=== PATIENT | male | born 1995 | race Caucasian/White ===

== ENCOUNTER 2016-07-16 12:23 | Emergency (ER) | payer OTHER ==
[2016-07-16 12:33] VITALS: BP 131/68; PULSE 79; RESP 20; TEMP 98.5
[2016-07-16] MEDS ORDERED: TOPICAL SKIN ADHESIVE 1 EACH AMP TOPICAL ONE (13:04)
[2016-07-16] MEDS ORDERED: GELATIN SPONGE,ABSORB (SMALL) 1 EACH SPONGE TOPICAL STA (13:05)
[2016-07-16] MEDS ORDERED: DIPH,PERTUS(ACELL)TETVAC-LF 0.5 ML VIAL IM ONE (13:08)
--- NOTE | 2016-07-16 13:12 | ED ---
Wound/Laceration HPI - General Chief Complaint: Wound/Laceration Stated Complaint: Laceration on Finger Time Seen by Provider: 07/16/16 12:52 Source: patient, RN notes reviewed Mode of arrival: ambulatory Limitations: no limitations - History of Present Illness Initial Comments: Patient is a 21-year-old male presents emergency Department with chief complaint of a laceration over his left second index finger. Patient reports that he cut it while trying to covering the noodles. Patient states that he sliced his finger and is continued to bleed. Patient denies any other lacerations or injuries. Patient reports he is not up-to-date on his tetanus shot. Patient denies any decreased range of motion in the finger. Has full sensation. Patient denies any recent fever, chills, shortness of breath, chest pain, back pain, abdominal pain, nausea vomiting, numbness or tingling, dysuria or hematuria, constipation or diarrhea, headaches or visual changes, or any other current symptoms - Related Data Home Medications Medication Instructions Recorded Confirmed No Known Home Medications [No 07/16/16 07/16/16 Known Home Medications] Allergies Allergy/AdvReac Type Severity Reaction Status Date / Time No Known Allergies Allergy Verified 07/16/16 12:31 Review of Systems ROS Statement: Those systems with pertinent positive or pertinent negative responses have been documented in the HPI. ROS Other: All systems not noted in ROS Statement are negative. Past Medical History Past Medical History: No Reported History History of Any Multi-Drug Resistant Organisms: None Reported Past Surgical History: No Surgical Hx Reported Past Psychological History: No Psychological Hx Reported Smoking Status: Current every day smoker Past Alcohol Use History: Occasional Past Drug Use History: None Reported General Exam - General Exam Comments Initial Comments: This is a 21-year-old male. Patient does not appear to be in any acute distress. Limitations: no limitations General appearance: alert, in no apparent distress Head exam: Present: atraumatic, normocephalic, normal inspection Eye exam: Present: normal appearance, PERRL, EOMI. Absent: scleral icterus, conjunctival injection, periorbital swelling ENT exam: Present: normal exam, normal oropharynx, mucous membranes moist Neck exam: Present: normal inspection. Absent: tenderness, meningismus, lymphadenopathy Respiratory exam: Present: normal lung sounds bilaterally. Absent: respiratory distress, wheezes, rales, rhonchi, stridor Cardiovascular Exam: Present: regular rate, normal rhythm, normal heart sounds. Absent: systolic murmur, diastolic murmur, rubs, gallop, clicks GI/Abdominal exam: Present: soft, normal bowel sounds. Absent: distended, tenderness, guarding, rebound, rigid Extremities exam: Present: normal inspection, full ROM, normal capillary refill. Absent: tenderness, pedal edema, joint swelling, calf tenderness Right Elbow exam: Present: normal inspection, full ROM Forearm Wrist exam: Present: normal inspection, full ROM Hand Wrist exam: Present: normal inspection, full ROM, laceration (Patient is a 2 cm laceration over the second finger. Laceration is superficial. Skin flap.) Neuro motor exam: Present: wrist extension intact, thumb opposition intact, thumb IP flexion intact, thumb adduction intact, fingers 2-5 abduction intact Vascular: Present: normal capillary refill Back exam: Present: normal inspection Neurological exam: Present: alert, oriented X3, CN II-XII intact Psychiatric exam: Present: normal affect, normal mood Skin exam: Present: warm, dry, intact, normal color. Absent: rash Course Vital Signs 07/16/16 12:31 Temperature 98.5 F Pulse Rate 79 Respiratory 20 Rate Blood Pressure 131/68 O2 Sat by Pulse 97 Oximetry Medical Decision Making - Medical Decision Making Is a 21-year-old male presenting to this department chief complaint of a laceration of his right second finger. He cut it while trying to cut ramen noodles. There is a skin flap in the area. Patient's hand was soaked in Betadine and soap. Will not close well with sutures. Patient will be given Dermabond and Gelfoam as well as a tube gauze. advised to keep the tube gauze on for the next 48 hours. Patient agrees treatment plan will comply. Return parameters were discussed. Patient does have full range of motion and has full sensation. Wound closed well with Dermabond. Disposition Clinical Impression: Finger laceration Disposition: HOME SELF-CARE Condition: Good Instructions: Laceration (ED), Skin Adhesive Care (ED) Additional Instructions: Patient is to monitor for any signs of infection including redness drainage and swelling over the area of the laceration. Patient should remain in the tube gauze for the next 48 hours. Return to the emergency department if any alarming signs or symptoms occur. Referrals: Nery Cherry MD [STAFF PHYSICIAN] - 1-2 days Time of Disposition: 13:11
== END 2016-07-16 13:48 | disposition home or self-care (01) ==
LOC: EC 12:23
DX: S61.211A Laceration without foreign body of left index finger without damage to nail, initial encounter (principal); F17.200 Nicotine dependence, unspecified, uncomplicated; Z23 Encounter for immunization; W26.9XXA Contact with unspecified sharp object(s), initial encounter; Y93.G1 Activity, food preparation and clean up
CPT/HCPCS: 12001; 90471; 90715; 99282

== ENCOUNTER 2016-08-02 17:35 | Emergency (ER) | payer BC, OTHER ==
--- NOTE | 2016-08-02 19:30 | ED ---
General Adult HPI - General Chief complaint: Wound/Laceration Stated complaint: finger laceration Time Seen by Provider: 08/02/16 18:48 Source: patient, RN notes reviewed, old records reviewed Mode of arrival: ambulatory Limitations: no limitations - History of Present Illness Initial comments: This is a 21-year-old male presents emergency Department chief complaint laceration over the left fifth finger. Patient reports that it occurred when he was trying to put a log on the edge of a log splitter. Patient reports that he got a cut on the edge of the logs. He reports his tetanus is up-to-date. Denies any fever or chills. States he is full range of motion of the finger. Patient reports this happened around 1 PM but continues to bleed. - Related Data Home Medications Medication Instructions Recorded Confirmed No Known Home Medications [No 07/16/16 07/16/16 Known Home Medications] Allergies Allergy/AdvReac Type Severity Reaction Status Date / Time No Known Allergies Allergy Verified 08/02/16 18:19 Review of Systems ROS Statement: Those systems with pertinent positive or pertinent negative responses have been documented in the HPI. ROS Other: All systems not noted in ROS Statement are negative. Past Medical History Past Medical History: No Reported History History of Any Multi-Drug Resistant Organisms: None Reported Past Surgical History: No Surgical Hx Reported Past Psychological History: No Psychological Hx Reported Smoking Status: Current every day smoker Past Alcohol Use History: Occasional Past Drug Use History: None Reported General Exam - General Exam Comments Initial Comments: Well appearing 21 year old male, no dsitress. Limitations: no limitations General appearance: alert, in no apparent distress Head exam: Present: atraumatic, normocephalic, normal inspection Eye exam: Present: normal appearance, PERRL, EOMI. Absent: scleral icterus, conjunctival injection, periorbital swelling ENT exam: Present: normal exam, mucous membranes moist Neck exam: Present: normal inspection. Absent: tenderness, meningismus, lymphadenopathy Respiratory exam: Present: normal lung sounds bilaterally. Absent: respiratory distress, wheezes, rales, rhonchi, stridor Cardiovascular Exam: Present: regular rate, normal rhythm, normal heart sounds. Absent: systolic murmur, diastolic murmur, rubs, gallop, clicks GI/Abdominal exam: Present: soft, normal bowel sounds. Absent: distended, tenderness, guarding, rebound, rigid Extremities exam: Present: normal inspection, full ROM, normal capillary refill , other (1cm laceration over left 5th finger, full range of motion and sensation. ). Absent: tenderness, pedal edema, joint swelling, calf tenderness Back exam: Present: normal inspection Neurological exam: Present: alert, oriented X3, CN II-XII intact Psychiatric exam: Present: normal affect, normal mood Skin exam: Present: warm, dry, intact, normal color. Absent: rash Course Vital Signs 08/02/16 08/02/16 18:16 20:15 Temperature 98.5 F 98.6 F Pulse Rate 76 80 Respiratory 20 18 Rate Blood Pressure 136/60 126/80 O2 Sat by Pulse 98 98 Oximetry Procedures - Laceration Laceration #1 Consent Obtained: verbal consent Indication: laceration Site: hand (left 5th finger) Size (cm): 1 Description: linear Depth: simple, single layer Anesthetic Used: lidocaine 1% Amount (mls): 2 Pre-repair: wound explored, irrigated extensively Type of Sutures: nylon Size of Sutures: 5-0 Number of Sutures: 3 Patient Tolerated Procedure: well, no complications Medical Decision Making - Medical Decision Making This is a 21-year-old male presents emergency Department chief complaint laceration over the fifth finger. Patient reports that it occurred when he was trying to put a log on the edge of a log splitter. Patient reports that he got a cut on the edge of the logs. He reports his tetanus is up-to-date. Denies any fever or chills. States he is full range of motion of the finger. Patient reports this happened around 1 PM but continues to bleed. Patient wound throughly irrigated, xray negative for fracture. Patient has full range of motion. Wound approximated with 3 sutures. REturn paramteres discussed, and advised to monitor for infection. Pt understands treatmetn plan and will comply. - Radiology Data Radiology results: report reviewed Xray negative for fracture. Disposition Clinical Impression: Finger laceration Disposition: HOME SELF-CARE Condition: Good Instructions: Finger Laceration (ED) Additional Instructions: Please return to the emergency room in 7 days to have sutures removed. Please leave wound covered for the first 24-48 hours and then leave open to air after that time. Please use clean soap and water to clean the suture area to prevent scabbing over the top of your sutures. Please watch for any signs of infection which may include but not limited to increased pain, swelling, redness, fever or chills. Please return to the emergency room if any signs of infection do occur. Please return to the emergency room for any other concerns or complications. Referrals: Nery Cherry MD [STAFF PHYSICIAN] - 1-2 days Time of Disposition: 19:30
[2016-08-02 20:16] VITALS: BP 126/80; PULSE 80; RESP 18; TEMP 98.6
--- NOTE | 2016-08-04 07:51 | CDI ---
Documentation Clarification OP Dear SANDRA Meneses: Please do addendum to ED report that describes the laceration of the finger. Please include the length and depth of the repair and also HPI and Physical exam Thank you, Mariah Paiz Electronic Masking System Operator If you have any question, Please contact sports centre manager at [phone] MTDD
--- NOTE | 2016-08-04 08:26 | XR ---
EXAMINATION TYPE: XR finger LT DATE OF EXAM: 08/02/2016 7:25 PM COMPARISON: NONE HISTORY: Pain TECHNIQUE: 3 views FINDINGS: I see no fracture nor dislocation. There is laceration deformity in the soft tissues anteri or to the DIP joint. IMPRESSION: Laceration deformity. No fracture. No sign of foreign body.
== END 2016-08-02 20:15 | disposition home or self-care (01) ==
LOC: EC 17:35
DX: S61.217A Laceration without foreign body of left little finger without damage to nail, initial encounter (principal); F17.200 Nicotine dependence, unspecified, uncomplicated; W26.8XXA Contact with other sharp object(s), not elsewhere classified, initial encounter; Y92.89 Other specified places as the place of occurrence of the external cause
CPT/HCPCS: 12001; 99283

== ENCOUNTER 2017-03-05 09:12 | Emergency (ER) | payer OTHER ==
[2017-03-05 09:18] VITALS: RESP 16
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
[2017-03-05 10:15] LABS: Appearance,Urine Clear (Clear); Bilirubin,Urine Negative (Negative); Blood,Urine Negative (Negative); Color,Urine Yellow; Glucose,Urine (UA) Negative (Negative); Ketones,Urine Negative (Negative); Leukocyte Esterase,Urine Negative (Negative); Nitrite,Urine Negative (Negative); PH, Urine 6.5 (5.0-8.0); Protein,Urine Negative (Negative); Specific Gravity,Urine 1.012 (1.001-1.035); Urobilinogen,Urine <2.0 mg/dL (<2.0)
[2017-03-05 10:17] LABS: Basophils # (A) 0.1 k/uL (0-0.2); Basophils % (A) 1 %; Eosinophils # (A) 0.1 k/uL (0-0.7); Eosinophils % (A) 1 %; HGB 16.5 gm/dL (13.0-17.5); Lymphocytes # (A) 1.2 k/uL (1.0-4.8); Lymphocytes % (A) 13 %; MCHC 34.4 g/dL (31.0-37.0); MCV 87.1 fL (80.0-100.0); Mean Platelet Volume 7.4; Monocytes # (A) 0.4 k/uL (0-1.0); Monocytes % (A) 5 %; Neutrophils # (A) 7.8 k/uL (1.3-7.7); Neutrophils % (A) 79 %; Platelet Count 330 k/uL (150-450); RBC 5.51 m/uL (4.30-5.90); RDW 14.2 % (11.5-15.5); WBC 9.8 k/uL (4.0-11.0)
[2017-03-05 10:23] LABS: Cocaine Screen,Urine Not Detected (NotDetected); Phencyclidine Screen,Urine Not Detected (NotDetected); Urn Cannabinoid Scrn Detected (NotDetected)
[2017-03-05 10:24] LABS: Amphetamine Screen,Urine Not Detected (NotDetected); Barbiturate Screen,Urine Not Detected (NotDetected); Benzodiazepines Screen,Urine Not Detected (NotDetected); Methadone Screen, Urine Not Detected (NotDetected); Opiate Screen,Urine Not Detected (NotDetected); Oxycodone Screen, Urine Not Detected (NotDetected); Tricyclic Antidepressant,Urine Not Detected (NotDetected)
[2017-03-05 10:27] LABS: ALT 37 U/L (21-72); AST 26 U/L (17-59); Albumin 4.6 g/dL (3.5-5.0); Alkaline Phosphatase 59 U/L (38-126); Anion Gap 12 mmol/L; Blood Urea Nitrogen 10 mg/dL (9-20); Calcium 10.5 mg/dL (8.4-10.2); Carbon Dioxide 26 mmol/L (22-30); Chloride 104 mmol/L (98-107); Glucose 98 mg/dL (74-99); Potassium 4.8 mmol/L (3.5-5.1); Sodium 142 mmol/L (137-145); Total Bilirubin 1.1 mg/dL (0.2-1.3); Total Protein 6.9 g/dL (6.3-8.2)
--- NOTE | 2017-03-05 10:44 | XR ---
EXAMINATION TYPE: XR chest 2V DATE OF EXAM: 03/05/2017 COMPARISON: NONE HISTORY: Chest pain TECHNIQUE: Frontal and lateral views of the chest are obtained. FINDINGS: There is no focal air space opacity. No evidence for pneumothorax. No pleural effusion. The cardiac silhouette size is within normal limits. The osseous structures are grossly intact. IMPRESSION: 1. No acute cardiopulmonary process.
[2017-03-05 11:11] VITALS: BP 133/65; PULSE 79; TEMP 98.1
== END 2017-03-05 11:09 | disposition home or self-care (01) ==
LOC: EC 09:12
DX: T21.12XA Burn of first degree of abdominal wall, initial encounter (principal); T22.10XA Burn of first degree of shoulder and upper limb, except wrist and hand, unspecified site, initial encounter; F12.10 Cannabis abuse, uncomplicated; R40.2412 Glasgow coma scale score 13-15, at arrival to emergency department; F90.9 Attention-deficit hyperactivity disorder, unspecified type; F17.200 Nicotine dependence, unspecified, uncomplicated; Z79.899 Other long term (current) drug therapy; W19.XXXA Unspecified fall, initial encounter
CPT/HCPCS: 36415; 70450; 71046; 80053; 80306; 81003; 84484; 85025; 93005; 99284

== ENCOUNTER 2017-03-11 22:10 | Emergency (ER) | payer OTHER ==
[2017-03-11] MEDS ORDERED: IBUPROFEN 800 MG TAB PO STA (22:16)
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
[2017-03-11 23:58] VITALS: BP 119/55; PULSE 61; RESP 17; TEMP 97.5
== END 2017-03-11 23:58 | disposition home or self-care (01) ==
LOC: EC 22:10
DX: M94.0 Chondrocostal junction syndrome [Tietze] (principal); F17.200 Nicotine dependence, unspecified, uncomplicated; Z48.00 Encounter for change or removal of nonsurgical wound dressing
CPT/HCPCS: 71046; 93005; 99285

== ENCOUNTER 2017-11-15 13:45 | Emergency (ER) | payer OTHER ==
[2017-11-15 14:21] VITALS: BP 125/65; PULSE 71; RESP 18; TEMP 97.7
--- NOTE | 2017-11-15 14:57 | XR ---
EXAMINATION TYPE: XR hand complete RT DATE OF EXAM: 11/15/2017 COMPARISON: NONE HISTORY: 22-year-old male football injury with right hand swelling at the third digit TECHNIQUE: 3 views FINDINGS: Tiny 2 mm corticated ossicle along the palmar aspect of the third middle phalangeal base. No acute fr acture, subluxation, or dislocation seen. Prominent neutral foramen within the third proximal phalanx on the oblique view. IMPRESSION: No acute osseous abnormality seen with particular attention to the third digit. A tiny 2 mm corticate d bone fragment at the palmar aspect of the third middle phalangeal base suggests sequela of remote i njury.
--- NOTE | 2017-11-15 15:48 | ED ---
General Adult HPI - General Chief complaint: Extremity Injury, Upper Stated complaint: rt hand injury Time Seen by Provider: 11/15/17 14:37 Source: patient, RN notes reviewed Mode of arrival: ambulatory - History of Present Illness Initial comments: 22-year-old male presents to the emergency department for a chief complaint right third digit pain times one day. Patient states he was playing football yesterday when he fell on his right hand. Patient states he has had pain and numbness over the dorsal third MCP joint right hand. Patient denies hitting his head or sustaining any other injuries. Patient states he can move it without difficulty. He states it feels somewhat better than last night. He has iced the area multiple times and did take Motrin yesterday.Patient has no other complaints at this time including shortness of breath, chest pain, abdominal pain, nausea or vomiting, headache, or visual changes. - Related Data Previous Rx's Medication Instructions Recorded Ibuprofen 800 mg PO Q6HR PRN #20 tablet 03/11/17 Allergies Allergy/AdvReac Type Severity Reaction Status Date / Time No Known Allergies Allergy Verified 11/15/17 14:17 Review of Systems ROS Statement: Those systems with pertinent positive or pertinent negative responses have been documented in the HPI. ROS Other: All systems not noted in ROS Statement are negative. Past Medical History Past Medical History: No Reported History History of Any Multi-Drug Resistant Organisms: None Reported Past Surgical History: Ear Surgery Past Psychological History: ADD/ADHD Smoking Status: Current every day smoker Past Alcohol Use History: Occasional Past Drug Use History: Marijuana General Exam General appearance: alert, in no apparent distress Head exam: Present: atraumatic, normocephalic, normal inspection Eye exam: Present: normal appearance. Absent: scleral icterus, conjunctival injection ENT exam: Present: normal exam, mucous membranes moist Neck exam: Present: normal inspection, full ROM. Absent: tenderness, meningismus, lymphadenopathy Respiratory exam: Present: normal lung sounds bilaterally. Absent: respiratory distress, wheezes, rales, rhonchi, stridor Cardiovascular Exam: Present: regular rate, normal rhythm, normal heart sounds. Absent: systolic murmur, diastolic murmur, rubs, gallop, clicks Extremities exam: Present: full ROM (Full range motion of the right hand including the third MCP, PIP, and DIP joint. Full strength in right hand and right third digit. No tenderness in the wrist or snuffbox. ), normal capillary refill (Capillary refill less than 2 seconds and radial pulse 2+ in RUE.), joint swelling (Patient does have soft tissue swelling over the dorsal third MCP joint of the right hand. No lacerations. No spurting redness or signs of infection.), other (Sensation intact in the right third digit. However there is some mildly decreased sensation over the dorsal right third MCP joint.). Absent: tenderness Course Vital Signs 11/15/17 14:17 Temperature 97.7 F Pulse Rate 71 Respiratory 18 Rate Blood Pressure 125/65 O2 Sat by Pulse 99 Oximetry Medical Decision Making - Medical Decision Making 22-year-old male presents to the emergency determine for a chief complaint of right hand pain over the third MCP joint. There is soft tissue swelling over this joint. Sensation is mildly decreased over the dorsal MCP joint of the right third digit but is otherwise intact throughout the right third digit and right hand. Full range of motion in the right third digit and full strength. Neurovascular intact. Right Hand x-ray shows no acute osseous abnormality seen with particular attention to the third digit. There is a small 2 mm corticated bone fragment of the palmar aspect of the third middle phalangeal base from remote injury. No pain or tenderness to the middle phalangeal base. Patient likely has a contusion of the right hand. He will follow up with orthopedics in one to 2 days. He will return if he has any worsening symptoms. He was also educated on rice therapy. Disposition Clinical Impression: Hand contusion Disposition: HOME SELF-CARE Condition: Good Instructions: Hand Sprain (ED), R.I.C.E. Treatment (ED) Additional Instructions: Please rest ice and elevate the right hand. Take motrin or Tylenol for pain. Follow-up with orthopedics in 1-2 days. Return to the emergency department if you have any worsening symptoms. Is patient prescribed a controlled substance at d/c from ED?: No Referrals: Venkat Kiran DO [Doctor of Osteopathic Medicine] - 1-2 days Time of Disposition: 15:48
== END 2017-11-15 15:55 | disposition home or self-care (01) ==
LOC: EC 13:45
DX: S60.221A Contusion of right hand, initial encounter (principal); F17.200 Nicotine dependence, unspecified, uncomplicated; W19.XXXA Unspecified fall, initial encounter; Y93.61 Activity, american tackle football
CPT/HCPCS: 99283

== ENCOUNTER 2018-10-31 19:58 | Emergency (ER) | payer OTHER ==
[2018-10-31] MEDS ORDERED: IBUPROFEN 600 MG TAB PO STA (20:54)
[2018-10-31] MEDS ORDERED: LIDOCAINE 1% INJ 10MG/ML (20 ML MDV) SQ ONE (20:54)
[2018-10-31] MEDS ORDERED: SODIUM CHLORIDE 0.9% IRRIG 1,000 ML BTL IRRIGATION ONE (20:54)
[2018-10-31] MEDS ORDERED: DIPH,PERTUS(ACELL)TETVAC-LF 0.5 ML VIAL IM ONE (20:55)
--- NOTE | 2018-10-31 21:23 | ED ---
General Adult HPI - General Chief complaint: Wound/Laceration Stated complaint: R arm Lac Time Seen by Provider: 10/31/18 20:09 Source: patient, family Mode of arrival: ambulatory Limitations: no limitations - History of Present Illness Initial comments: Patient is 23-year-old male presenting to emergency prompt with a chief complaint of cut on his arm. Patient reports he was playing with his friends 3 hours ago when he lacerated the lateral aspect of his right upper arm. Patient reports the pain is a 5 and throbbing. Patient denies any alleviating factors. Patient is unaware of his tetanus status. Patient denies any edema or erythema. Patient is not on blood thinners. Patient denies any numbness and tingling. Patient has full range of motion. Patient is unaware of his tetanus status. - Related Data Previous Rx's Medication Instructions Recorded Ibuprofen 800 mg PO Q6HR PRN #20 tablet 03/11/17 Allergies Allergy/AdvReac Type Severity Reaction Status Date / Time No Known Allergies Allergy Verified 10/31/18 20:08 Review of Systems ROS Statement: Those systems with pertinent positive or pertinent negative responses have been documented in the HPI. ROS Other: All systems not noted in ROS Statement are negative. Past Medical History Past Medical History: No Reported History History of Any Multi-Drug Resistant Organisms: None Reported Past Surgical History: Ear Surgery Past Psychological History: ADD/ADHD Smoking Status: Current every day smoker Past Alcohol Use History: Occasional Past Drug Use History: Marijuana General Exam - General Exam Comments Initial Comments: General: Well-developed well-nourished distress HEENT: Normocephalic/atraumatic, PERLL, pharynx erythema, swallowing well, EAC no erythema, no exudates, TM clear, no cervical lymph nodes Neck: Supple, nontender, trachea midline Chest/Lungs: Normal respirations, no signs of respiratory distress clear to auscultation bilaterally no wheezes, rales, rhonchi Cardiac: Regular rate and rhythm, normal S1-S2, no murmurs rubs or gallops Abdomen/GI: Soft nontender, bowel sounds equal or quadrant x4, no guarding, no rebound no CVA tenderness : Deferred Musculoskeletal: Descender laceration on the lateral aspect of the right upper arm, no active bleeding, no edema or erythema, superficial linear laceration, normal capillary refill on her right arm, +2 ulnar radial pulses bilaterally. Skin: Warmth, no rashes or lesions, no cyanosis or diaphoresis Neurologic: AAO x 3, CN 2-12 intact, Psychiatric: Mood and affect normal, judgment normal Limitations: no limitations Course Vital Signs 10/31/18 10/31/18 20:06 23:53 Temperature 98.1 F 97.8 F Pulse Rate 76 58 L Respiratory 18 18 Rate Blood Pressure 121/59 106/67 O2 Sat by Pulse 98 Oximetry Procedures - Laceration Laceration #1 Consent Obtained: verbal consent Site: hand Size (cm): 4 Description: linear Depth: simple, single layer Sedation/Analgesia: none Anesthetic Used: lidocaine 1% Anesthesia Technique: local infiltration Amount (mls): 10 Pre-repair: irrigated extensively Type of Sutures: nylon Size of Sutures: 4-0 Number of Sutures: 7 Technique: simple, interrupted Patient Tolerated Procedure: well Medical Decision Making - Medical Decision Making Patient is a 23-year-old male presenting to emergency Department with chief complaint of a cut on his hand. Patient reports he was wrestling with his fr iends when the incident occurred. Laceration site was repaired with 7 sutures. Patient tolerated procedure well. Tetanus prophylaxis administered. Upon discharge the patient's father contacted the ED and requested the patient be petition for psychiatric evaluation because he suspecting the patient is cutting himself. Patient was given the option of leaving the emergency department but if the petition was verified by our emergency psychiatric staff he will be brought back to the emergency department via police, or he voluntarily excepts to be evaluated by her psychiatric staff. Patient chose to be evaluated voluntarily by psychiatric staff. EPS evaluation pending. Case discussed with Dr. Hall. - Lab Data Lab Results 10/31/18 Range/Units 23:00 Urine Opiates Screen Not Detected (NotDetected) Ur Oxycodone Screen Not Detected (NotDetected) Urine Methadone Screen Not Detected (NotDetected) Ur Propoxyphene Screen Not Detected (NotDetected) Ur Barbiturates Screen Not Detected (NotDetected) U Tricyclic Antidepress Not Detected (NotDetected) Ur Phencyclidine Scrn Not Detected (NotDetected) Ur Amphetamines Screen Not Detected (NotDetected) U Methamphetamines Scrn Not Detected (NotDetected) U Benzodiazepines Scrn Not Detected (NotDetected) Urine Cocaine Screen Not Detected (NotDetected) U Marijuana (THC) Screen Detected H (NotDetected) Disposition Clinical Impression: Laceration, Self-inflicted injury Disposition: HOME SELF-CARE Condition: Stable Instructions (If sedation given, give patient instructions): Care For Your Stitches (DC), Laceration (DC) Additional Instructions: Please return to emergency department 10-14 days for suture removal. Please follow proper wound care structures. Please return to emergency department sooner if symptoms worsen. Is patient prescribed a controlled substance at d/c from ED?: No Referrals: None,Stated [Primary Care Provider] - 1-2 days Time of Disposition: 22:19
[2018-10-31 23:28] LABS: Amphetamine Screen,Urine Not Detected (NotDetected); Barbiturate Screen,Urine Not Detected (NotDetected); Benzodiazepines Screen,Urine Not Detected (NotDetected); Cocaine Screen,Urine Not Detected (NotDetected); Methadone Screen, Urine Not Detected (NotDetected); Opiate Screen,Urine Not Detected (NotDetected); Oxycodone Screen, Urine Not Detected (NotDetected); Phencyclidine Screen,Urine Not Detected (NotDetected); Tricyclic Antidepressant,Urine Not Detected (NotDetected); Urn Cannabinoid Scrn Detected (NotDetected)
[2018-10-31 23:54] VITALS: TEMP 97.8
[2018-11-01 03:17] LABS: Basophils # (A) 0.1 k/uL (0-0.2); Basophils % (A) 1 %; Eosinophils # (A) 0.3 k/uL (0-0.7); Eosinophils % (A) 3 %; HCT 44.6 % (39.0-53.0); HGB 15.5 gm/dL (13.0-17.5); Lymphocytes % (A) 19 %; MCH 30.1 pg (25.0-35.0); MCHC 34.7 g/dL (31.0-37.0); MCV 86.7 fL (80.0-100.0); Mean Platelet Volume 7.5; Monocytes # (A) 0.5 k/uL (0-1.0); Monocytes % (A) 5 %; Neutrophils # (A) 7.5 k/uL (1.3-7.7); Neutrophils % (A) 72 %; Platelet Count 275 k/uL (150-450); RBC 5.15 m/uL (4.30-5.90); RDW 14.8 % (11.5-15.5); WBC 10.5 k/uL (3.8-10.6)
[2018-11-01 03:17] LABS: Appearance,Urine Clear (Clear); Bilirubin,Urine Negative (Negative); Blood,Urine Negative (Negative); Color,Urine Light Yellow; Glucose,Urine (UA) Negative (Negative); Hyaline Casts,Urine 1 /lpf (0-2); Ketones,Urine Negative (Negative); Leukocyte Esterase,Urine Trace (Negative); Mucus,Urine Occasional /hpf; Nitrite,Urine Negative (Negative); Protein,Urine Negative (Negative); RBC,Urine <1 /hpf (0-5); Specific Gravity,Urine 1.007 (1.001-1.035); Urobilinogen,Urine <2.0 mg/dL (<2.0); WBC,Urine 6 /hpf (0-5)
[2018-11-01 03:26] LABS: ALT 19 U/L (21-72); AST 20 U/L (17-59); African American GFR (CKD) >90 (>60 ml/min/1.73 sqM); Albumin 4.4 g/dL (3.5-5.0); Alkaline Phosphatase 38 U/L (38-126); Anion Gap 12 mmol/L; Blood Urea Nitrogen 9 mg/dL (9-20); Calcium 9.4 mg/dL (8.4-10.2); Carbon Dioxide 25 mmol/L (22-30); Chloride 103 mmol/L (98-107); Glucose 110 mg/dL (74-99); Sodium 140 mmol/L (137-145); Total Bilirubin 0.5 mg/dL (0.2-1.3); Total Protein 6.6 g/dL (6.3-8.2)
[2018-11-01 06:41] VITALS: PULSE 62
[2018-11-01 08:12] VITALS: BP 110/70; RESP 14
== END 2018-11-01 08:02 | disposition home or self-care (01) ==
LOC: EC 19:58
DX: S41.111A Laceration without foreign body of right upper arm, initial encounter (principal); F17.200 Nicotine dependence, unspecified, uncomplicated; Z23 Encounter for immunization; X78.1XXA Intentional self-harm by knife, initial encounter; Y93.89 Activity, other specified; Y92.009 Unspecified place in unspecified non-institutional (private) residence as the place of occurrence of the external cause
CPT/HCPCS: 99284 ×2; 12002 ×2; 90471 ×2; 82075; 36415; 80053; 85025; 81001; 80306; 90715; J2001

== ENCOUNTER 2020-07-08 05:37 | Emergency (ER) | payer OTHER ==
[2020-07-08 05:50] VITALS: BP 149/80; PULSE 106; RESP 20; TEMP 98.2
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
== END 2020-07-08 07:35 | disposition home or self-care (01) ==
LOC: EC 05:37
DX: S01.81XA Laceration without foreign body of other part of head, initial encounter (principal); F17.200 Nicotine dependence, unspecified, uncomplicated; F12.90 Cannabis use, unspecified, uncomplicated; F32.9 Major depressive disorder, single episode, unspecified; Y04.2XXA Assault by strike against or bumped into by another person, initial encounter
CPT/HCPCS: 99283

== ENCOUNTER 2021-06-19 05:24 | Emergency (ER) | payer OTHER ==
[2021-06-19 05:30] VITALS: BP 132/85; PULSE 79; RESP 18; TEMP 98.6
[2021-06-19] MEDS ORDERED: LIDOCAINE/EPINEPHR/TETRACAINE 5 ML BOTTLE TOPICAL ONE (06:08)
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
== END 2021-06-19 07:05 | disposition home or self-care (01) ==
LOC: EC 05:24
DX: S61.412A Laceration without foreign body of left hand, initial encounter (principal); F90.9 Attention-deficit hyperactivity disorder, unspecified type; F32.A Depression, unspecified; F43.10 Post-traumatic stress disorder, unspecified; F17.200 Nicotine dependence, unspecified, uncomplicated; F12.90 Cannabis use, unspecified, uncomplicated; Z91.040 Latex allergy status; W26.8XXA Contact with other sharp object(s), not elsewhere classified, initial encounter
CPT/HCPCS: 12001; 99282

== ENCOUNTER 2022-06-28 21:10 | Emergency (ER) | payer OTHER ==
[2022-06-28 21:41] VITALS: TEMP 98.2
[2022-06-28] MEDS ORDERED: KETOROLAC 15 MG/ML 1 ML VIAL IVP STA (22:45)
--- NOTE | 2022-06-28 23:02 | XR ---
EXAM: XR Right Shoulder Complete, 2 or More Views CLINICAL HISTORY: ITS. REASON XR Reason: trauma, fall TECHNIQUE: Two or more views of the right shoulder. COMPARISON: No relevant prior studies available. FINDINGS: Bones/joints: Unremarkable. No acute fracture. No dislocation. Soft tissues: Unremarkable. IMPRESSION: Normal right shoulder x-rays.
[2022-06-29 00:24] VITALS: BP 117/74; PULSE 70; RESP 17
[2022-06-29] MEDS ORDERED: DIPH,PERTUS(ACELL)TETVAC-LF 0.5 ML VIAL IM ONE (00:26)
--- NOTE | 2022-06-29 00:32 | ED ---
Upper Extremity HPI - General Chief Complaint: Extremity Injury, Upper Stated Complaint: fell at work and hurt shoulder Time Seen by Provider: 06/28/22 22:00 Source: patient Mode of arrival: ambulatory Limitations: no limitations - History of Present Illness Initial Comments: 7-year-old male presents to the emergency room in for evaluation of right shou lder pain. States that he was at work when he tripped, fell backwards onto the top of his [employer]. He sustained an abrasion to his right lateral shoulder. Has been having pain since. Incident happened just prior to hospital arrival. He did not take anything for pain. Denies any numbness or tingling into his hand. No elbow wrist pain. No chest pain or shortness of breath. No other alleviatin g, precipitating or modifying factors - Related Data Previous Rx's Medication Instructions Recorded Ibuprofen 800 mg PO Q6HR PRN #20 tablet 03/11/17 Ibuprofen [Motrin] 600 mg PO Q8HR PRN #30 tab 06/29/22 Allergies Allergy/AdvReac Type Severity Reaction Status Date / Time latex Allergy Rash/Hives Verified 06/28/22 21:38 Review of Systems ROS Statement: Those systems with pertinent positive or pertinent negative responses have been documented in the HPI. ROS Other: All systems not noted in ROS Statement are negative. Past Medical History Past Medical History: No Reported History History of Any Multi-Drug Resistant Organisms: None Reported Past Surgical History: Ear Surgery Past Psychological History: ADD/ADHD, Depression, PTSD Smoking Status: Current every day smoker Past Alcohol Use History: Occasional Past Drug Use History: Marijuana General Exam Limitations: no limitations General appearance: alert, in no apparent distress Head exam: Present: atraumatic, normocephalic, normal inspection Neck exam: Present: normal inspection. Absent: tenderness, meningismus, lymphadenopathy Respiratory exam: Present: normal lung sounds bilaterally. Absent: respiratory distress, wheezes, rales, rhonchi, stridor Cardiovascular Exam: Present: regular rate, normal rhythm, normal heart sounds. Absent: systolic murmur, diastolic murmur, rubs, gallop, clicks GI/Abdominal exam: Present: soft, normal bowel sounds. Absent: distended, tenderness, guarding, rebound, rigid Extremities exam: Present: full ROM, tenderness (to the right lateral shoulder. abrasion noted in this location. no active bleeding. full ROM. 2+ radial and ulnar pulses. no elbow or wrist pain) Back exam: Present: normal inspection Neurological exam: Present: alert, oriented X3, CN II-XII intact Psychiatric exam: Present: normal affect, normal mood Course Vital Signs 06/28/22 06/29/22 21:38 00:22 Temperature 98.2 F Pulse Rate 81 70 Respiratory 18 17 Rate Blood Pressure 155/88 117/74 O2 Sat by Pulse 95 98 Oximetry Medical Decision Making - Medical Decision Making Was pt. sent in by a medical professional or institution (, [facility], [facility], urgent care, hospital, or residential...) When possible be specific @ -No Did you speak to anyone other than the patient for history (EMS, parent, family, police, friend...)? What history was obtained from this source @ -No Did you review nursing and triage notes (agree or disagree)? Why? @ -I reviewed and agree with nursing and triage notes Were old charts reviewed (outside hosp., previous admission, EMS record, old EKG, old radiological studies, urgent care reports/EKG's, residential records)? Report findings @ -No old charts were reviewed Differential Diagnosis (chest pain, altered mental status, abdominal pain women, abdominal pain men, vaginal bleeding, weakness, fever, dyspnea, syncope, headache, dizziness, GI bleed, back pain, seizure, CVA, palpatations, mental health, musculoskeletal)? @ -sprain, strain, disolocation, abrasion, laceration, neck injury EKG interpreted by me (3pts min.). @ -No X-rays interpreted by me (1pt min.). @ -yes CT interpreted by me (1pt min.). @ -None done U/S interpreted by me (1pt. min.). @ -None done What testing was considered but not performed or refused? (CT, X-rays, U/S, labs)? Why? @ -None What meds were considered but not given or refused? Why? @ -None Did you discuss the management of the patient with other professionals (pr ofessionals i.e. [facility]DRA Cline, [facility], lab, RT, psych nurse, nephrology social worker, complaint operator, teacher, boating safety officer, showcase trimmer)? Give summary @ -No Was smoking cessation discussed for >3mins.? @ -No Was critical care preformed (if so, how long)? @ -No Were there social determinants of health that impacted care today? How? (Homelessness, low income, unemployed, alcoholism, drug addiction, transportation, low edu. Level, literacy, decrease access to med. care, residential, rehab)? @ -No Was there de-escalation of care discussed even if they declined (Discuss DNR or withdrawal of care, Hospice)? DNR status @ -No What co-morbidities impacted this encounter? (DM, HTN, Smoking, COPD, CAD, Cancer, CVA, ARF, Chemo, Hep., AIDS, mental health diagnosis, sleep apnea, morbid obesity)? @ -None Was patient admitted / discharged? Hospital course, mention meds given and route, prescriptions, significant lab abnormalities, going to OR and other pertinent info. @ -Arrival patient is placed into room 23. A thorough history and physical exam was performed. X-rays performed patient's right shoulder. He is given a dose of Toradol. Imaging is reviewed by myself and is negative for any acute fractures. Results discussed patient. Due to his sustained abrasion on the high lift we did update his tetanus. He is placed in a sling. Patient instructed to rest, ice and elevate the extremity. Follow up with his primary care doctor. May need repeat imaging to include an MRI if his pain persists. Patient was agreeable to this. Asked to return for any new or worsening sy mptoms. Patient discharged home in stable condition Undiagnosed new problem with uncertain prognosis? @ -yes Drug Therapy requiring intensive monitoring for toxicity (Heparin, Nitro, Insulin, Cardizem)? @ -No Were any procedures done? @ -No Diagnosis/symptom? @ -acute right shoulder pain, acute fall, right shoulder strain Acute, or Chronic, or Acute on Chronic? @ -acute Uncomplicated (without systemic symptoms) or Complicated (systemic symptoms)? @ -uncomplicated Side effects of treatment? @ -No Exacerbation, Progression, or Severe Exacerbation? @ -No Poses a threat to life or bodily function? How? (Chest pain, [place], [place], pneumonia, PE, COPD, DKA, ARF, appy, cholecystitis, CVA, Diverticulitis, Homicidal, Suicidal, threat to staff... and all critical care pts) @ -No Disposition Clinical Impression: Right shoulder pain, Fall, Abrasion Disposition: HOME SELF-CARE Condition: Stable Instructions (If sedation given, give patient instructions): How to Use a Sling (ED), Shoulder Sprain (ED) Additional Instructions: Please follow-up with your primary care doctor within 7-10 days. Have repeat x- rays performed if your pain persists. You may need further imaging such as an MRI. Rest, ice and elevate the extremity. Limit use and wear the sling. Return for any new or worsening symptoms Prescriptions: Ibuprofen [Motrin] 600 mg PO Q8HR PRN #30 tab PRN Reason: Pain Is patient prescribed a controlled substance at d/c from ED?: No Referrals: Connor Vines MD [Primary Care Provider] - 1-2 days Time of Disposition: 00:31
== END 2022-06-29 00:36 | disposition home or self-care (01) ==
LOC: EC 21:10
DX: S40.211A Abrasion of right shoulder, initial encounter (principal); F12.90 Cannabis use, unspecified, uncomplicated; F17.200 Nicotine dependence, unspecified, uncomplicated; Z91.040 Latex allergy status; Z23 Encounter for immunization; W01.0XXA Fall on same level from slipping, tripping and stumbling without subsequent striking against object, initial encounter; Y99.0 Civilian activity done for income or pay
CPT/HCPCS: 73030; 90715; 99283; 90471; 96374; J1885

== ENCOUNTER 2024-08-27 12:21 | Emergency (ER) | payer OTHER ==
[2024-08-27 12:25] VITALS: TEMP 98.1
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
[2024-08-27] MEDS: KETOROLAC 15 MG/ML 1 ML VIAL IM STA (14:18)
[2024-08-27 14:25] VITALS: BP 143/96; PULSE 53; RESP 18
== END 2024-08-27 14:25 | disposition home or self-care (01) ==
LOC: EC 12:21
DX: S00.83XA Contusion of other part of head, initial encounter (principal); F17.200 Nicotine dependence, unspecified, uncomplicated; Z91.040 Latex allergy status; W50.1XXA Accidental kick by another person, initial encounter
CPT/HCPCS: 70110; 99283; 96372; J1885